=== PATIENT | female | born 1950 | race Caucasian/White ===

== ENCOUNTER 2016-08-08 06:12 | Day surgery (SDC) | payer OTHER ==
[~2016-08-08] VITALS: Ht 154.9 cm; Wt 92.1 kg
[~2016-08-08 06:12] MED LIST: ASPI-664 PO; CIPR500T4 PO; METF500T3 PO; METO-429 PO; PHEN-538 PO; RAMI5CAP23 PO; SIMV20TA2 PO
[2016-08-08 06:52] VITALS: Ht 154.9 cm; Wt 92.1 kg
[2016-08-08] MEDS ORDERED: HYD25 PO (06:59)
[2016-08-08] MEDS ORDERED: NAPR-260 PO (06:59)
[2016-08-08] MEDS ORDERED: LEVO25TA53 PO (06:59)
[2016-08-08] MEDS ORDERED: LOSA50TA6 PO (06:59)
[2016-08-08 07:49] VITALS: BP 162/67; PULSE 52; RESP 16
[2016-08-08] MEDS ORDERED: PROPOFOL 60 ML ONE (07:50)
[2016-08-08] MEDS ORDERED: MIDAZOLAM 1 MG/ML 2 ML INJ ONE (08:15)
[2016-08-08 08:48] VITALS: BP 138/65; PULSE 50; RESP 20
--- NOTE | 2016-08-08 10:37 | GILP ---
DATE OF PROCEDURE: NAME OF PROCEDURES: Colonoscopy and biopsy. SURGEON: Lily Vergara MD PREOPERATIVE DIAGNOSIS: Screening colonoscopy. POSTOPERATIVE DIAGNOSES: 1. Colonoscopy all the way to the cecum. 2. Three small colon polyps were removed using the biopsy forceps. 3. Diverticulosis of the colon. 4. Internal hemorrhoids. INDICATION FOR THE PROCEDURE: Ms. Vanessa Gomez a 66-year-old female patient who was schedule d for screening colonoscopy. The procedures and possible complications are well explained to the patient, she understood and cons ented to the procedure. DESCRIPTION OF PROCEDURE: Under the influence of anesthesia, the colonoscope was carefully introduc ed in the rectum and under direct vision, it was advanced all the way to the cecum. FINDINGS: The patient had 3 small colon polyps and they were removed using the biopsy forceps. She was noted to have diverticulosis of the colon and internal hemorrhoids. She tolerated the procedure very well and there was no complication from the procedure. At the end of the procedure, she was awake with stable vital signs and she was discharged home to the care of h er family. IMPRESSION: 1. Colonoscopy all the way to the cecum. 2. Two small colon polyps were removed using the biopsy forceps. 3. Internal hemorrhoids. 4. Diverticulosis of the colon. PLAN: 1. Await histopathology report. 2. Next screening colonoscopy in 5 years. Dictated By: LILY GIBSON/ROD Conf#: [id number] DID#: [id number]
== END 2016-08-08 12:57 | disposition home or self-care (01) ==
LOC: GIL 06:12
PROVIDERS: ATTEND Internal Medicine Gastroenterology
DX: Z12.11 Encounter for screening for malignant neoplasm of colon (principal); K63.5 Polyp of colon; K57.90 Diverticulosis of intestine, part unspecified, without perforation or abscess without bleeding; K64.8 Other hemorrhoids; E11.9 Type 2 diabetes mellitus without complications; I10 Essential (primary) hypertension; E03.9 Hypothyroidism, unspecified; E66.01 Morbid (severe) obesity due to excess calories; Z68.38 Body mass index [BMI] 38.0-38.9, adult
CPT/HCPCS: 45380; 82962; 88305; J2250; Z7610